=== PATIENT | female | born 1975 ===

== ENCOUNTER 2018-12-26 11:00 | Outpatient (CLI) | payer MEDICAID | END 2018-12-27 11:00 | disposition home or self-care (01) | LOC: SLR 11:00 | PROVIDERS: ATTEND Otolaryngology | DX: G47.33 Obstructive sleep apnea (adult) (pediatric) (principal); R06.83 Snoring; R40.0 Somnolence | CPT/HCPCS: 95810 ==

== ENCOUNTER 2019-01-02 16:11 | Outpatient (CLI) | payer MEDICAID | END 2019-01-02 16:12 | disposition home or self-care (01) | LOC: SLR 16:11 | PROVIDERS: ATTEND Otolaryngology | DX: G47.33 Obstructive sleep apnea (adult) (pediatric) (principal); R06.83 Snoring; R40.0 Somnolence | CPT/HCPCS: 95811 ==